=== PATIENT | female | born 1945 | race Caucasian/White ===

== ENCOUNTER 2019-12-26 09:51 | Emergency (ER) | payer MEDICARE ==
[~2019-12-26] VITALS: Ht 162.6 cm; Wt 64.4 kg
[~2019-12-26 09:51] MED LIST: ABILIFY5 MG PO; AMBIEN10 MG PO; CYMBALTA PO; LOVENOX40 MG/0.4 SQ; MOBIC7.5 MG PO; NORCO 7.5-3251 EACH PO; NORCO PO; SYNTHOID PO; WELLBUTRIN75 MG PO
[2019-12-26] MEDS ORDERED: CYMBALTA30 MG PO (10:03)
[2019-12-26] MEDS ORDERED: SODIUM CHLORIDE 0.9% 1000ML 1,000 ML IV STA (10:04)
[2019-12-26] MEDS ORDERED: SIMVASTATIN20 MG PO (10:05)
[2019-12-26] MEDS ORDERED: LEVOTHYROXINE50 MCG PO (10:05)
[2019-12-26] MEDS ORDERED: BUPROPION HCL100 MG PO (10:05)
[2019-12-26] MEDS ORDERED: AMBIEN10 MG PO (10:05)
[2019-12-26] MEDS ORDERED: XENAZINE12.5 MG PO (10:05)
[2019-12-26 10:35] LABS: BASOPHILS # (AUTO) 0.1 (0.0-0.1); BASOPHILS % 1.6 % (0.0-1.0); EOSINOPHILS # (AUTO) 0.4 (0.0-0.4); EOSINOPHILS % 4.4 % (0.0-6.0); HEMATOCRIT 40.3 % (34.2-44.1); LYMPHOCYTES # (AUTO) 2.5 (1.0-3.2); LYMPHOCYTES % 28.7 % (18.0-39.1); MEAN CORPUSCULAR HEMOGLOBIN 29.3 pg (28-32); MEAN CORPUSCULAR HGB CONC 32.3 g/dL (31-35); MONOCYTES # (AUTO) 0.6 (0.2-0.8); MONOCYTES % 7.4 % (4.4-11.3); NEUTROPHILS % 57.6 % (38.7-80.0); PLATELET COUNT 348 x10e3/uL (140-360); RED BLOOD COUNT 4.43 x10e6/uL (3.6-5.1); RED CELL DISTRIBUTION WIDTH 13.4 % (11.7-14.4)
[2019-12-26 10:52] LABS: INR 0.88; PROTHROMBIN TIME 12.4 seconds (11.9-14.5)
[2019-12-26 10:53] LABS: PARTIAL THROMBOPLASTIN TIME 32.6 seconds (23.8-35.5)
[2019-12-26 11:05] LABS: ALBUMIN 3.9 g/dL (3.5-5.0); ALBUMIN/GLOBULIN RATIO 1.1 (0.8-2.0); ANION GAP 16.8 mmol/L (8-16); CALCIUM 8.8 mg/dL (8.4-10.2); CREATININE, SERUM 0.91 mg/dL (0.57-1.11); POTASSIUM 3.8 mmol/L (3.5-5.1)
[2019-12-26 11:13] LABS: CREATINE KINASE MB 1.7 ng/mL (0-5.0)
--- NOTE | 2019-12-26 11:17 | Diagnostic Imaging Report ---
EXAM: CHEST SINGLE (PORTABLE) DATE: 12/26/2019 10:40 AM INDICATION: Shortness of breath COMPARISON: None FINDINGS: The trachea is midline. Suspected calcified granulomas noted projecting over the right suprahilar and upper lung zone regions. The lungs are otherwise symmetrically expanded without evidence for focal consolidation, pneumothorax, or significant volume pleural effusion. The cardiomediastinal silhouette and pulmonary vasculature are within normal limits. No acute osseous abnormality is identified. IMPRESSION: No acute cardiopulmonary process identified. Signed by: Dr. Adiel Matthews MD on 12/26/2019 11:14 AM
[2019-12-26 12:10] LABS: CLARITY,URINE SL CLOUDY (CLEAR); COLOR,URINE YELLOW (YELLOW)
[2019-12-26 12:11] LABS: BILIRUBIN,URINE NEGATIVE (NEGATIVE); KETONES,URINE NEGATIVE (NEGATIVE); LEUKOCYTE ESTERASE ,URINE TRACE (NEGATIVE); NITRITE,URINE NEGATIVE (NEGATIVE); PROTEIN,URINE DIPSTICK NEGATIVE (NEGATIVE); URINE UROBILINOGEN 1 mg/dL (0.2 - 1)
[2019-12-26 12:14] LABS: BACTERIA,URINE RARE /HPF; EPITHELIAL CELLS,URINE MODERATE /LPF; RBC,URINE 0-5 /HPF (0-5)
[2019-12-26 14:16] LABS: ABG HCO3 20 mmol/L (22-26); ABG PCO2 33 mmHg (35-45); ABG PH 7.38 (7.35-7.45); ABG PO2 117 mmHg (80-105); ABG TCO2 21
[2019-12-26] MEDS ORDERED: IOPAMIDOL 370 MG/ML 200 ML INFUS..BTL INJ ONE (14:30)
[2019-12-26] MEDS ORDERED: SODIUM CHLORIDE 0.9% 50ML 50 ML ONE (14:30)
--- NOTE | 2019-12-26 14:43 | Emergency Department Note ---
History of Present Illnes History of Present Illness Chief Complaint: Respiratory History of Present Illness This is a 74 year old female PATIENT IN FROM HOME WITH COMPLAINTS OF SHORTNESS OF BREATH WORSE IN THE LAST 2 DAYS; PATIENT STATES THAT SHE IS ALWAYS A LITTLE SHORT OF BREATH. PATIENT RECENTLY PUT ON TETRABENAZINE FOR TARDIVE DYSKINESIA, AND STATES THAT THE DOCTOR SAID IT COULD CAUSE SHORTNESS OF BREATH. PATIENT ALERT AND ORIENTED, RESP EVEN AND NONLABORED, APPEARS IN NO DISTRESS, DENIES PAIN. Historian: Patient Arrival Mode: Car Past Medical/Family History Physician Review I have reviewed the patient's past medical and family history. Any updates have been documented here. Past Medical History Recent Fever: No Clinical Suspicion of Infectio: No New/Unexplained Change in Ment: No Past Medical History: Hypothyroidism, Anxiety, Depression, Hyperlipedemia Other Medical History: TARDIVE DYSKONESIA Past Surgical History: Hip Replacement Other Surgery: LEFT HIP SX Social History Smoking Cessation: Never Smoker Counseling Performed: No Alcohol Use: Occasional Any Illegal Drug Use: No Physically hurt or threatened: No Other Any Pre-Existing Lines (PICC,: No Physical Exam Related Data Allergies: Coded Allergies: No Known Allergies (Unverified , 11/23/13) Triage Vital Signs Vital Signs Date Time Temp Pulse Resp B/P (MAP) Pulse Ox O2 Delivery O2 Flow Rate FiO2 12/26/19 09:56 98.2 102 35 160/84 100 Room Air Physical Exam CONSTITUTIONAL HENT EYES NECK PULMONARY CARDIOVASCULAR GASTROINTESTINAL GENITOURINARY SKIN MUSCULOSKELETAL NEUROLOGICAL PSYCHOLOGICAL Results Laboratory Result Diagram: 12/26/19 1010 12/26/19 1010 Laboratory Laboratory Tests Test 12/26/19 11:02 12/26/19 10:34 12/26/19 10:10 Coronavirus (PCR) Not detected (NOTDETECTED) Arterial Blood pH 7.38 (7.35-7.45) Arterial Blood Partial Pressure CO2 33 mmHg (35-45) Arterial Blood Partial Pressure O2 117 mmHg (80-105) Arterial Blood HCO3 20 mmol/L (22-26) Arterial Blood Total CO2 21 Arterial Blood Oxygen Saturation 99.0 % (95-98) Arterial Blood Base Excess -6.0 mmol/L (-2 - 3) FiO2 21 % White Blood Count 8.65 x10e3/uL (4.8-10.8) Red Blood Count 4.43 x10e6/uL (3.6-5.1) Hemoglobin 13.0 g/dL (12.0-16.0) Hematocrit 40.3 % (34.2-44.1) Mean Corpuscular Volume 91.0 fL (81-99) Mean Corpuscular Hemoglobin 29.3 pg (28-32) Mean Corpuscular Hemoglobin Concent 32.3 g/dL (31-35) Red Cell Distribution Width 13.4 % (11.7-14.4) Platelet Count 348 x10e3/uL (140-360) Neutrophils (%) (Auto) 57.6 % (38.7-80.0) Lymphocytes (%) (Auto) 28.7 % (18.0-39.1) Monocytes (%) (Auto) 7.4 % (4.4-11.3) Eosinophils (%) (Auto) 4.4 % (0.0-6.0) Basophils (%) (Auto) 1.6 % (0.0-1.0) Neutrophils # (Auto) 5.0 (2.1-6.9) Lymphocytes # (Auto) 2.5 (1.0-3.2) Monocytes # (Auto) 0.6 (0.2-0.8) Eosinophils # (Auto) 0.4 (0.0-0.4) Basophils # (Auto) 0.1 (0.0-0.1) Absolute Immature Granulocyte (auto 0.03 x10e3/uL (0-0.1) Prothrombin Time 12.4 seconds (11.9-14.5) Prothromb Time International Ratio 0.88 Activated Partial Thromboplast Time 32.6 seconds (23.8-35.5) D-Dimer Quantitative (PE/DVT) 1.81 ug/mLFEU (0.00-0.45) Urine Color Yellow (YELLOW) Urine Clarity Sl cloudy (CLEAR) Urine pH 5.5 (5 - 7) Urine Specific [place] 1.020 (1.010-1.025) Urine Protein Negative (NEGATIVE) Urine Glucose (UA) Negative (NEGATIVE) Urine Ketones Negative (NEGATIVE) Urine Blood Negative (NEGATIVE) Urine Nitrite Negative (NEGATIVE) Urine Bilirubin Negative (NEGATIVE) Urine Urobilinogen 1 mg/dL (0.2 - 1) Urine Leukocyte Esterase Trace (NEGATIVE) Urine RBC 0-5 /HPF (0-5) Urine WBC 6-10 /HPF (0-5) Urine Epithelial Cells Moderate /LPF (NONE) Urine Bacteria Rare /HPF (NONE) Sodium Level 141 mmol/L (136-145) Potassium Level 3.8 mmol/L (3.5-5.1) Chloride Level 108 mmol/L (98-107) Carbon Dioxide Level 20 mmol/L (22-29) Anion Gap 16.8 mmol/L (8-16) Blood Urea Nitrogen 13 mg/dL (7-26) Creatinine 0.91 mg/dL (0.57-1.11) Estimat Glomerular Filtration Rate 60 ML/MIN (60-) BUN/Creatinine Ratio 14 (6-25) Glucose Level 99 mg/dL (74-118) Calcium Level 8.8 mg/dL (8.4-10.2) Total Bilirubin 0.4 mg/dL (0.2-1.2) Aspartate Amino Transf (AST/SGOT) 21 IU/L (5-34) Alanine Aminotransferase (ALT/SGPT) 13 IU/L (0-55) Alkaline Phosphatase 104 IU/L (40-150) Creatine Kinase 50 IU/L (29-168) Creatine Kinase MB 1.70 ng/mL (0-5.0) Troponin I 0.005 ng/mL (0-0.300) B-Type Natriuretic Peptide 15.7 pg/mL (0-100) Total Protein 7.6 g/dL (6.5-8.1) Albumin 3.9 g/dL (3.5-5.0) Globulin 3.7 g/dL (2.3-3.5) Albumin/Globulin Ratio 1.1 (0.8-2.0) Procedures 12 Lead ECG Interpretation ECG Interpretation : ECG: ECG 1 [employer]: Interpreted by ED physician Date: Dec 26, 2019 Time: 15:13 Rhythm: sinus rhythm Rate: normal BPM: 86 QRS axis: normal ST segments normal: Yes T waves normal: Yes Clinical Impression: normal ECG ABG Interpretation ABG Results: ABG 1 Interpretation: normal Assessment & Plan Medical Decision Making MDM PT PRESENTS WITH DYSPNEA, NO CP - CBC, CHEM, ECG, CARDIACS, D-DIMER, CXR, COVID SWAB, ABG - R/O PNEUMONIA, CHF, PE, ACIDOSIS Reassessment Reassessment PT WANTS TO GO HOME, FEELS BETTER. CT CHEST NEGATIVE DC HOME, DC TETRABENAZINE, F/U PCP TOMORROW, RTED PRN Assessment & Plan Final Impression: (1) Dyspnea Depart Disposition: HOME, SELF-CARE Last Vital Signs Date Time Temp Pulse Resp B/P (MAP) Pulse Ox O2 Delivery O2 Flow Rate FiO2 12/26/19 13:32 84 29 147/73 100 12/26/19 09:56 98.2 Room Air Home Meds Reported Medications Tetrabenazine (XENAZINE) 12.5 Mg Tablet, 12.5 MG PO DAILY 12/26/19 Levothyroxine Sodium (LEVOTHYROXINE SODIUM) 50 Mcg Tablet, 50 MCG PO DAILY, #30 TAB 12/26/19 Simvastatin (SIMVASTATIN) 20 Mg Tablet, 20 MG PO 2100, EA 12/26/19 Zolpidem Tartrate (AMBIEN) 10 Mg Tablet, 10 MG PO HS PRN for INSOMNIA, #30 TAB 12/26/19 Bupropion Hcl (BUPROPION HCL) 100 Mg Tablet, 150 MG PO DAILY, #30 TAB 12/26/19 Duloxetine Hcl (CYMBALTA) 30 Mg Capsule.dr, 120 MG PO DAILY, #30 CAP 12/26/19 Discontinued Reported Medications Enoxaparin Sodium (LOVENOX) 40 Mg/0.4 Ml Inj, 40 MG SQ DAILY 11/29/13 Hydrocodone Bit/Acetaminophen (NORCO 7.5-325 TABLET) 1 Each Tablet, 1 EA PO Q4 PRN for PAIN, TAB 11/29/13 Bupropion Hcl (WELLBUTRIN) 75 Mg Tablet, 75 MG PO DAILY 11/23/13 [Synthoid] No Conflict Check, 50 MG PO DAILY 11/23/13 [[place]] No Conflict Check, 5-325 MG PO Q4-6 PRN for PAIN 11/23/13 Meloxicam* (MOBIC*) 7.5 Mg Tablet, 7.5 MG PO PRN 11/23/13 [Cymbalta] No Conflict Check, 60 MG PO DAILY 11/23/13 Zolpidem Tartrate (AMBIEN) 10 Mg Tablet, 10 MG PO HS 11/23/13 Aripiprazole (ABILIFY) 5 Mg Tablet, 5 MG PO DAILY 11/23/13 Medications in the ED Sodium Chloride 1,000 ml @ 0 mls/hr Q0M STAT IV Last administered on 12/26/19at 10:51; Admin Dose 1,000 MLS/HR; Start 12/26/19 at 10:04; Stop 12/26/19 at 10:08; Status DC Sodium Chloride 50 ml @ ud STK-MED ONCE .ROUTE ; Start 12/26/19 at 14:30; Stop 12/26/19 at 14:23; Status DC Iopamidol 74,000 mg STK-MED ONCE INJ ; Start 12/26/19 at 14:30; Stop 12/26/19 at 14:23; Status DC LIU WHITLEY MD Dec 26, 2019 14:43
--- NOTE | 2019-12-26 16:17 | Diagnostic Imaging Report ---
TECHNIQUE: CT of the chest WITH intravenous contrast (pulmonary embolism protocol). Dose modulation, iterative reconstruction, and/or weight-based adjustment of the mA/kV was utilized to reduce the radiation dose to as low as reasonably achievable. INDICATION: 74-year-old woman with positive d-dimer. COMPARISON: Chest radiograph from earlier same date. FINDINGS: LINES/TUBES: None. PULMONARY ARTERIES: Proximal to the bifurcation of the main pulmonary artery, the main pulmonary artery is 2.1 cm in diameter. No filling defects within the pulmonary arteries to suggest pulmonary embolus. LUNGS AND AIRWAYS: Central airways are patent. Biapical pleural-parenchymal scarring, right greater than left. 5 mm nodular structure in the right apex (axial lung window series image 16). 1 x 1.2 cm calcified granuloma in the right upper lobe with adjacent scarring and architectural distortion of the right upper lobe, likely related to prior granulomatous disease. Mild dependent atelectasis in both lower lobes, right greater than left. PLEURA: The pleural spaces are clear. HEART AND MEDIASTINUM: The visualized thyroid gland is normal. No significant mediastinal, hilar, or axillary lymphadenopathy. Calcified right mediastinal lymph nodes, likely related to prior granulomatous disease. The heart and pericardium are within normal limits. Mild atherosclerotic calcifications in the thoracic aorta and coronary arteries. Small hiatal hernia. SOFT TISSUES AND BONES: Degenerative changes of the visualized spine. Soft tissues are unremarkable. UPPER ABDOMEN: Unremarkable. IMPRESSION: No pulmonary embolus or other acute abnormalities in the chest. 5 mm nodular structure in the right apex may represent scarring, however pulmonary nodule cannot be excluded. If the patient is at high risk for lung neoplasm, then optional follow-up chest CT may be obtained in 12 months for reassessment. Otherwise, no routine follow-up imaging recommended. Signed by: Susihl Patel MD on 12/26/2019 4:14 PM
== END 2019-12-26 17:10 | disposition home or self-care (01) ==
LOC: ER 10:20
DX: R06.00 Dyspnea, unspecified (principal); E78.5 Hyperlipidemia, unspecified; E03.9 Hypothyroidism, unspecified; F41.9 Anxiety disorder, unspecified; G24.01 Drug induced subacute dyskinesia; Z11.59 Encounter for screening for other viral diseases
CPT/HCPCS: 36415; 36600; 71045; 71260; 80053; 81001; 82550; 82553; 82805; 83880; 84484; 85025; 85379; 85610; 85730; 87086; 99284; J7030; Q9967; U0002; 93005

== ENCOUNTER 2024-05-08 09:23 | Observation (INO) | payer MEDICARE ==
[~2024-05-08] VITALS: Ht 160 cm; Wt 71.2 kg
[~2024-05-08 09:23] MED LIST changes: +BUPROPION HCL100 MG PO; +CYMBALTA30 MG PO; +LEVOTHYROXINE50 MCG PO; +LIDOCAINE 4% PATCH TP PRN; +SIMVASTATIN20 MG PO; +XENAZINE12.5 MG PO
[2024-05-08 10:41] LABS: BASOPHILS # (AUTO) 0.1 (0.0-0.1); BASOPHILS % 1.4 % (0.0-1.0); EOSINOPHILS # (AUTO) 0.3 (0.0-0.4); EOSINOPHILS % 3.6 % (0.0-6.0); HEMATOCRIT 38.8 % (34.2-44.1); HEMOGLOBIN 12.7 g/dL (12.0-16.0); LYMPHOCYTES # (AUTO) 1.9 (1.0-3.2); LYMPHOCYTES % 21.2 % (18.0-39.1); MEAN CORPUSCULAR HGB CONC 32.7 g/dL (31-35); MEAN CORPUSCULAR VOLUME 91.7 fL (81-99); MONOCYTES # (AUTO) 0.6 (0.2-0.8); MONOCYTES % 6.7 % (4.4-11.3); NEUTROPHILS # (AUTO) 5.9 (2.1-6.9); NEUTROPHILS % 66.8 % (38.7-80.0); PLATELET COUNT 259 x10e3/uL (140-360); RED BLOOD COUNT 4.23 x10e6/uL (3.6-5.1); RED CELL DISTRIBUTION WIDTH 13.2 % (11.7-14.4); WHITE BLOOD COUNT 8.78 x10e3/uL (4.8-10.8)
[2024-05-08 10:53] LABS: INR 0.96; PROTHROMBIN TIME 13.4 seconds (11.9-14.5)
[2024-05-08 10:54] LABS: PARTIAL THROMBOPLASTIN TIME 31.5 seconds (23.8-35.5)
[2024-05-08 11:02] LABS: ALKALINE PHOSPHATASE 110 IU/L (40-150); ANION GAP 15.7 mmol/L (8-16); BILIRUBIN,TOTAL 0.4 mg/dL (0.2-1.2); BLOOD UREA NITROGEN 8 mg/dL (7-26); BUN/CREATININE RATIO 8 (6-25); CALCIUM 9.1 mg/dL (8.4-10.2); CARBON DIOXIDE 22 mmol/L (22-29); CHLORIDE 106 mmol/L (98-107); CREATINE KINASE 56 IU/L (29-168); CREATININE, SERUM 0.95 mg/dL (0.57-1.11); EST GLOMERULAR FILTRATION RATE 61 ML/MIN (>=60); GLUCOSE 117 mg/dL (74-118); MAGNESIUM 1.6 MG/DL (1.3-2.1); POTASSIUM 3.7 mmol/L (3.5-5.1); SODIUM 140 mmol/L (136-145); TOTAL PROTEIN 7.9 g/dL (6.5-8.1)
[2024-05-08 11:09] LABS: ALANINE AMINOTRANSFERASE < 6 IU/L (0-55)
[2024-05-08 11:21] LABS: THYROID STIMULATING HORMONE 0.931 uIU/mL (0.350-4.940)
[2024-05-08 11:22] LABS: TROPONIN I < 0.001 ng/mL (0-0.300)
[2024-05-08] MEDS ORDERED: IOPAMIDOL 370 MG/ML 100 ML INFUS..BTL INJ ONE (11:27)
[2024-05-08] MEDS ORDERED: SODIUM CHLORIDE 0.9% 100 ML ONE (11:27)
[2024-05-08] MEDS: SODIUM CHLORIDE 0.9% 1000ML 1,000 ML IV STA (11:37)
[2024-05-08] MEDS ORDERED: ONDANSETRON HCL INJ 2MG/ML 2ML 2 MG/ML VIAL IV PRN (14:00)
[2024-05-08] MEDS ORDERED: MECLIZINE HCL 12.5 MG TAB PO PRN (14:00)
[2024-05-08] MEDS ORDERED: POTASSIUM CHLORIDE 20 MEQ TAB CR PO PRN (14:00)
[2024-05-08] MEDS ORDERED: ALBUTEROL/IPRATROPIUM 3 ML NEB NEB PRN (14:00)
[2024-05-08] MEDS ORDERED: SIMETHICONE 80 MG CHEW PO PRN (14:00)
[2024-05-08] MEDS ORDERED: DEXTROSE 50% SYRINGE 50 ML IV PRN (14:00)
[2024-05-08] MEDS ORDERED: BENZONATATE 100 MG CAP PO PRN (14:00)
[2024-05-08] MEDS ORDERED: DOCUSATE SODIUM 100 MG CAP PO PRN (14:00)
[2024-05-08] MEDS ORDERED: DIPHENHYDRAMINE HCL 25 MG CAP PO PRN (14:00)
[2024-05-08] MEDS: ASPIRIN 81 MG CHEW TAB PO ONE (16:07)
[2024-05-08] MEDS: SODIUM CHLORIDE 0.9% 1000ML 1,000 ML IV ONE (16:08)
[2024-05-08 16:10] VITALS: PULSE 81; RESP 18; TEMP 98.9
[2024-05-08 16:46] VITALS: BP 173/59; PULSE 86; RESP 18; TEMP 97.4; O2SAT 99
[2024-05-08 16:47] VITALS: BP 160/98; PULSE 97; RESP 17; O2SAT 99
[2024-05-08 16:50] VITALS: BP 186/84; PULSE 93; RESP 16; O2SAT 100
[2024-05-08] MEDS: SODIUM CHLORIDE 0.9% 1000ML 1,000 ML IV SCH (17:06)
[2024-05-08] MEDS ORDERED: OMEPRAZOLE40 MG PO (18:13)
[2024-05-08] MEDS ORDERED: AMLODIPINE BESYL5 MG PO (18:20)
[2024-05-08] MEDS ORDERED: CLONAZEPAM0.5 MG PO (18:20)
[2024-05-08] MEDS ORDERED: LIPITOR10 MG PO (18:20)
[2024-05-08] MEDS ORDERED: PRIMIDONE125 MG PO (18:20)
[2024-05-08] MEDS ORDERED: MECLIZINE HCL12.5 MG PO (18:20)
[2024-05-08] MEDS ORDERED: MIRTAZAPINE15 MG PO (18:20)
[2024-05-08] MEDS ORDERED: CARBIDOPA-LEVO1 EA10 (18:20)
[2024-05-08] MEDS ORDERED: ATROPINE S0.4 MG/1 M SL (18:20)
[2024-05-08] MEDS ORDERED: FLONASE ALLERG9.9 ML INH (18:20)
[2024-05-08] MEDS ORDERED: PAROXETINE HCL20 MG PO (18:20)
[2024-05-08] MEDS ORDERED: ZOLPIDEM TARTRAT5 MG PO (18:21)
[2024-05-08 20:00] VITALS: BP_SYST 166; BP_SYST 183; BP_DIAS 88; PULSE 74; RESP 18; TEMP 96.4; O2SAT 100
[2024-05-08] MEDS ORDERED: MELATONIN 5 MG TABLET PO PRN (21:00)
[2024-05-08] MEDS: HYDRALAZINE HCL 20 MG/ML VIAL IV PRN (23:26)
[2024-05-09] VITALS (8 sets, daily range): BP systolic 136–183; BP diastolic 70–88; PULSE 65–79; RESP 17–20; TEMP 96.4–98.1; O2SAT 99–100
[2024-05-09] MEDS: MECLIZINE HCL 12.5 MG TAB PO PRN (00:22)
[2024-05-09 06:22] LABS: BASOPHILS # (AUTO) 0.1 (0.0-0.1); BASOPHILS % 1.2 % (0.0-1.0); EOSINOPHILS # (AUTO) 0.4 (0.0-0.4); EOSINOPHILS % 3.9 % (0.0-6.0); HEMATOCRIT 35.4 % (34.2-44.1); HEMOGLOBIN 11.4 g/dL (12.0-16.0); LYMPHOCYTES # (AUTO) 2.2 (1.0-3.2); LYMPHOCYTES % 24.1 % (18.0-39.1); MEAN CORPUSCULAR HEMOGLOBIN 29.2 pg (28-32); MEAN CORPUSCULAR HGB CONC 32.2 g/dL (31-35); MEAN CORPUSCULAR VOLUME 90.8 fL (81-99); MONOCYTES # (AUTO) 0.7 (0.2-0.8); MONOCYTES % 7.8 % (4.4-11.3); NEUTROPHILS # (AUTO) 5.7 (2.1-6.9); NEUTROPHILS % 62.7 % (38.7-80.0); PLATELET COUNT 264 x10e3/uL (140-360); RED CELL DISTRIBUTION WIDTH 13.2 % (11.7-14.4); WHITE BLOOD COUNT 9.09 x10e3/uL (4.8-10.8)
[2024-05-09 06:49] LABS: ALBUMIN 3.5 g/dL (3.5-5.0); ALBUMIN/GLOBULIN RATIO 1.1 (0.8-2.0); ANION GAP 13.6 mmol/L (8-16); BILIRUBIN,TOTAL 0.5 mg/dL (0.2-1.2); CALCIUM 8.3 mg/dL (8.4-10.2); CHOL/HDL RATIO 3.2 (3.0-3.6); CREATININE, SERUM 0.73 mg/dL (0.57-1.11); POTASSIUM 3.6 mmol/L (3.5-5.1); TOTAL PROTEIN 6.8 g/dL (6.5-8.1)
[2024-05-09 07:11] LABS: TROPONIN I 0.004 ng/mL (0-0.300)
[2024-05-09 07:22] LABS: MAGNESIUM 1.6 MG/DL (1.3-2.1); PHOSPHORUS 2.9 MG/DL (2.3-4.7)
[2024-05-09 07:43] LABS: THYROID STIMULATING HORMONE 3.205 uIU/mL (0.350-4.940)
[2024-05-09] MEDS ORDERED: ASPIRIN 81 MG ENTERIC COATED PO SCH (09:00)
[2024-05-09] MEDS: ASPIRIN 81 MG ENTERIC COATED PO SCH (09:02)
[2024-05-09] MEDS: PANTOPRAZOLE SOD 40 MG TABEC PO SCH (09:02)
[2024-05-09] MEDS: CYANOCOBALAMIN INJ 1,000 MCG/ML VIAL IM SCH (13:48)
[2024-05-09] MEDS: METHYLPREDNISOLONE SOD SUCC 125 MG/2ML VIAL IV ONE (13:48)
[2024-05-09] MEDS: ACETAMINOPHEN 325 MG TAB PO PRN (13:49)
[2024-05-09 14:56] LABS: TROPONIN I 0.004 ng/mL (0-0.300)
[2024-05-09] MEDS: MECLIZINE HCL 12.5 MG TAB PO SCH (18:19)
[2024-05-09] MEDS: ENOXAPARIN SOD INJ 40 MG/0.4 ML SYR SC SCH (18:19)
[2024-05-10] VITALS: BP 135/70; PULSE 73; RESP 16; TEMP 97.7; O2SAT 98
[2024-05-10 05:33] VITALS: BP 134/76; PULSE 68; RESP 16; TEMP 97; O2SAT 98
[2024-05-10 05:56] LABS: BASOPHILS % 0.2 % (0.0-1.0); HEMATOCRIT 32.6 % (34.2-44.1); HEMOGLOBIN 10.9 g/dL (12.0-16.0); LYMPHOCYTES # (AUTO) 1.7 (1.0-3.2); LYMPHOCYTES % 18.8 % (18.0-39.1); MEAN CORPUSCULAR HEMOGLOBIN 29.6 pg (28-32); MEAN CORPUSCULAR HGB CONC 33.4 g/dL (31-35); MEAN CORPUSCULAR VOLUME 88.6 fL (81-99); MONOCYTES # (AUTO) 0.6 (0.2-0.8); MONOCYTES % 6.7 % (4.4-11.3); NEUTROPHILS # (AUTO) 6.5 (2.1-6.9); PLATELET COUNT 282 x10e3/uL (140-360); RED BLOOD COUNT 3.68 x10e6/uL (3.6-5.1); RED CELL DISTRIBUTION WIDTH 13.2 % (11.7-14.4); WHITE BLOOD COUNT 8.82 x10e3/uL (4.8-10.8)
[2024-05-10 06:20] LABS: CALCIUM 8.9 mg/dL (8.4-10.2); CREATININE, SERUM 0.77 mg/dL (0.57-1.11)
[2024-05-10 08:00] VITALS: BP 166/98; PULSE 86; RESP 18; TEMP 97.5; O2SAT 99
[2024-05-10 10:01] VITALS: BP 166/98; PULSE 86; RESP 18; TEMP 97.5; O2SAT 99
[2024-05-10 12:00] VITALS: BP 164/86; PULSE 80; RESP 18; TEMP 98.7; O2SAT 100
[2024-05-10] MEDS: METHYLPREDNISOLONE SOD SUCC 125 MG/2ML VIAL IV ONE (13:14)
== END 2024-05-10 15:05 | disposition home or self-care (01) ==
LOC: ER 10:00 → ERHOLD 13:41 → MED/SURG2 16:22
PROVIDERS: ADMIT Internal Medicine; ATTEND Internal Medicine
DX: H81.10 Benign paroxysmal vertigo, unspecified ear (principal); E86.0 Dehydration; F41.8 Other specified anxiety disorders; E03.9 Hypothyroidism, unspecified; E78.5 Hyperlipidemia, unspecified; G24.01 Drug induced subacute dyskinesia
CPT/HCPCS: 36415 ×3; 70496; 70498; 70551; 71045; 80048; 80053 ×2; 80061; 82550 ×2; 82607; 83036; 83735 ×2; 84100; 84443 ×2; 84484 ×2; 85025 ×3; 85610; 85730; 93005; 93306; 97112 ×2; 97116; 97162; 97530; 99285; G0378 ×3; J0360; J1650; J2919 ×2; J3420 ×2; J7030 ×2; J7050; J8597 ×2; Q9967; S0164 ×2; J2470